=== PATIENT | female | born 1940 | race Caucasian/White ===

== ENCOUNTER 2019-11-22 18:13 | Observation (INO) | payer MEDICARE, BC ==
[2019-11-22 18:37] LABS: ABSOLUTE EOSINOPHILS # (AUTO) 0.1 10^3/uL (0.0-0.6); ABSOLUTE LYMPHOCYTES (AUTO) 0.7 10^3/uL (0.5-4.7); ABSOLUTE MONOCYTES (AUTO) 0.7 10^3/uL (0.1-1.4); ABSOLUTE NEUT (AUTO) 11.4 10^3/uL (1.7-8.2); BASOPHILS % (AUTO) 0.4 % (0-2); EOSINOPHILS % (AUTO) 1.1 % (0-6); HEMOGLOBIN 11.3 g/dL (12.0-15.5); LYMPHOCYTES % (AUTO) 5.5 % (13-45); MEAN CORPUSCULAR HEMOGLOBIN 31.9 pg (27.0-33.4); MEAN CORPUSCULAR HGB CONC 33.2 g/dL (32.0-36.0); MEAN CORPUSCULAR VOLUME 96 fl (80-97); MONOCYTES % (AUTO) 5.4 % (3-13); PLATELET COUNT 171 10^3/uL (150-450); RED BLOOD COUNT 3.54 10^6/uL (3.72-5.28); RED CELL DISTRIBUTION WIDTH 15.5 % (11.5-14.0); SEGMENTED NEUTROPHILS % (AUTO) 87.6 % (42-78); TOTAL CELLS COUNTED % (AUTO) 100 %
[2019-11-22 18:49] LABS: ALKALINE PHOSPHATASE 84 U/L (38-126); ANION GAP 7 (5-19); ASPARTATE AMINO TRANSFERASE 29 U/L (14-36); BILIRUBIN,DIRECT 0.1 mg/dL (0.0-0.4); BILIRUBIN,TOTAL 1.2 mg/dL (0.2-1.3); BLOOD UREA NITROGEN 15 mg/dL (7-20); CARBON DIOXIDE 31 mmol/L (22-30); CHLORIDE 101 mmol/L (98-107); GLUCOSE 191 mg/dL (75-110); POTASSIUM 4.1 mmol/L (3.6-5.0); TOTAL PROTEIN 7.1 g/dL (6.3-8.2)
--- NOTE | 2019-11-22 19:19 | RADIOLOGY REPORT (SQ) ---
EXAM DESCRIPTION: CHEST SINGLE VIEW COMPLETED DATE/TIME: 11/22/2019 5:36 pm REASON FOR STUDY: sob COMPARISON: None. EXAM PARAMETERS: NUMBER OF VIEWS: One view. TECHNIQUE: Single frontal radiographic view of the chest acquired. RADIATION DOSE: NA LIMITATIONS: None. FINDINGS: LUNGS AND PLEURA: Lungs are hyperinflated. There is ill-defined consolidation in the righ t mid to lower lung and small right pleural effusion, suspicious for pneumonia. No pneumothorax. MEDIASTINUM AND HILAR STRUCTURES: No masses. Contour normal. HEART AND VASCULAR STRUCTURES: Heart normal in size. Normal vasculature. BONES: No acute findings. HARDWARE: None in the chest. OTHER: No other significant finding. IMPRESSION: Right lower lobe consolidation and small effusion suspicious for pneumonia. TECHNICAL DOCUMENTATION: JOB ID: [id number] 2010 [employer]- All Rights Reserved Reading location - IP/workstation name: [email or web address]
--- NOTE | 2019-11-22 21:01 | ER Document Report ---
ED Respiratory Problem - General Chief Complaint: Breathing Difficulty Stated Complaint: TROUBLE BREATHING Time Seen by Provider: 11/22/19 20:47 Notes: Patient is a 79-year-old female that comes to the emergency department for chief complaint of difficulty breathing. She states that tonight she simply could not catch her breath, she states this started since yesterday, patient is mainly bed and wheelchair bound but even transferring she could barely breathe over the past day. EMS reports oxygen saturation was 90 on room air. Patient denies fever, she has occasional coughing, she denies chest pain, she denies nausea or vomiting. She denies any other complaints. Patient traveled down 2 days ago, driving about 5 hours. Patient also has a chronic brace and dressing on her left lower extremity after surgery from a nonhealing wound. Past medical history includes hypertension, CHF. In addition patient states that she was [place] 3 [place] 3 [place] ago out of state and she was discharged home on nebulizer therapy and oxygen. She states she does not have the oxygen at home now visiting here. TRAVEL OUTSIDE OF THE [place] IN LAST 30 DAYS: No - Related Data Allergies/Adverse Reactions: Sulfa (Sulfonamide Antibiotics) Allergy (Verified 11/22/19 23:15) Home Medications: pt unable to recall medications, states that the only one that she knows is lasix Past Medical History - General Information source: Patient, Relative - Social History Smoking Status: Never Smoker Frequency of alcohol use: None Drug Abuse: None Lives with: Family Family History: Reviewed & Not Pertinent Patient has suicidal ideation: No Patient has homicidal ideation: No - Past Medical History Cardiac Medical History: Reports: Hx Congestive Heart Failure, Hx Hypertension Past Surgical History: Reports: Hx Orthopedic Surgery - left leg - Immunizations Immunizations up to date: Yes Hx Diphtheria, Pertussis, Tetanus Vaccination: Yes Review of Systems - Review of Systems Constitutional: No symptoms reported EENT: No symptoms reported Cardiovascular: See HPI Respiratory: See HPI Gastrointestinal: No symptoms reported Genitourinary: No symptoms reported Female Genitourinary: No symptoms reported Musculoskeletal: No symptoms reported Skin: No symptoms reported Hematologic/Lymphatic: No symptoms reported Neurological/Psychological: No symptoms reported Physical Exam - Vital signs Vitals: Temp Pulse Ox 99.3 F 95 11/22/19 18:15 11/22/19 18:15 - Notes Notes: GENERAL: Alert, interacts well. No acute distress. HEAD: Normocephalic, atraumatic. EYES: Pupils equal, round, and reactive to light. Extraocular movements intact. ENT: Oral mucosa moist, tongue midline. Oropharynx unremarkable. Airway patent. NECK: Full range of motion. Supple. Trachea midline. LUNGS: Rales noted in both lower lung valente. No tachypnea or respiratory distress. Speaks in full sentences. Unremarkable otherwise. HEART: Regular rate and rhythm. No murmur ABDOMEN: Soft, non-tender. Non-distended. EXTREMITIES: Dressing and immobilization over the left foot and lower extremity. There appears to be 1+ pitting edema bilaterally. Unremarkable otherwise. BACK: no cervical, thoracic, lumbar midline tenderness. No saddle anesthesia, normal distal neurovascular exam. Moves all extremities in full range of motion. NEUROLOGICAL: Alert and oriented x3. Normal speech. Cranial nerves II through XII grossly intact. PSYCH: Normal affect, normal mood. SKIN: Warm, dry, normal turgor. No rashes or lesions noted. Course - Re-evaluation Re-evalutation: Patient states she feels much improved now that she is on oxygen. She does have rales in both lower lung valente. She does have chronic dressing and immobilization of the left lower extremity, she does spend most of her time immobilized in either wheelchair or bed, she just had a long distance travel, and she is mildly tachycardic. There is concern for pulmonary embolism. CBC shows leukocytosis with elevation of neutrophils, no bandemia. Chest x-ray shows what appears to be right lower lobe pneumonia. Because of patient's r ecent hospitalization this is considered hospital-acquired pneumonia. Cultures pending, vital signs do not show fever or hypotension. Venous blood gas unremarkable. Starting on vancomycin and cefepime. Chemistry nonspecific, troponin indeterminate, BNP is greater than 1700. No comparison. EKG nonischemic. CTA shows what appears to me to be pneumonia but radiologist is reading as vascular congestion most likely. No pulmonary embolism or dissection. I discussed with patient and significant other. They are concerned about going home because of her suspected pneumonia, pulmonary vascular congestion, and lack of home oxygen currently. I discussed with Dr. Sim, she recommends admission to the hospital for pneumonia treatment, diuresis, and oxygen. Discussed with Dr. Bonds, patient accepted to medical floor observation. - Vital Signs Vital signs: Temp Pulse Resp BP Pulse Ox 98.3 F 105 H 18 146/69 H 100 11/23/19 04:20 11/23/19 04:20 11/23/19 04:20 11/23/19 04:20 11/23/19 04:20 - Laboratory Result Diagrams: 11/22/19 18:20 11/22/19 18:20 Laboratory results interpreted by me: 11/22/19 11/22/19 11/22/19 18:20 18:20 18:20 WBC 13.0 H RBC 3.54 L Hgb 11.3 L Hct 34.0 L RDW 15.5 H Lymph % (Auto) 5.5 L Absolute Neuts (auto) 11.4 H Seg Neutrophils % 87.6 H Carbon Dioxide 31 H Glucose 191 H NT-Pro-B Natriuret Pep 1760 H Urine Protein Urine Glucose (UA) Urine Blood 11/22/19 20:25 WBC RBC Hgb Hct RDW Lymph % (Auto) Absolute Neuts (auto) Seg Neutrophils % Carbon Dioxide Glucose NT-Pro-B Natriuret Pep Urine Protein 30 H Urine Glucose (UA) 50 H Urine Blood LARGE H Discharge - Discharge Clinical Impression: Hypoxia, Shortness of breath Pneumonia Qualifiers: Pneumonia type: due to unspecified organism Laterality: unspecified laterality Lung location: lower lobe of lung Qualified Code(s): J18.9 - Pneumonia, unspecified organism CHF exacerbation Qualifiers: Heart failure type: unspecified Qualified Code(s): I50.9 - Heart failure, unspecified Condition: Stable Disposition: ADMITTED OBSERVATION Admitting Provider: Vamshi (Hospitalist) Unit Admitted: Medical Floor
[2019-11-22 21:45] LABS: TROPONIN I 0.024 ng/mL
[2019-11-22] MEDS ORDERED: MORPHINE SULFATE 10 MG/ML INJ IV ONE (21:47)
[2019-11-22 21:51] LABS: APPEARANCE,URINE CLEAR; BILIRUBIN,URINE NEGATIVE (NEGATIVE); COLOR,URINE YELLOW; GLUCOSE, URINE 50 mg/dL (NEGATIVE); KETONES,URINE NEGATIVE (NEGATIVE); LEUKOCYTE ESTERASE,URINE NEGATIVE (NEGATIVE); NITRITE,URINE NEGATIVE (NEGATIVE); PROTEIN,URINE 30 mg/dL (NEGATIVE); URINE SPECIFIC GRAVITY 1.016; UROBILINOGEN,URINE NEGATIVE mg/dL (<2.0)
[2019-11-22 21:59] LABS: VENOUS BLOOD BASE EXCESS -2.2 mmol/L; VENOUS BLOOD HCO3 22.8 mmol/L (20-32); VENOUS BLOOD PCO2 39.8 mmHg (35-63); VENOUS BLOOD PH 7.38 (7.30-7.42)
--- NOTE | 2019-11-22 22:03 | EKG REPORT ---
SEVERITY:- ABNORMAL ECG - SINUS TACHYCARDIA NONSPECIFIC T ABNORMALITIES, INFERIOR LEADS : Confirmed by: Guerda Mast 22-Nov-2019 22:02:34
[2019-11-22] MEDS ORDERED: VANCOMYCIN HCL INJ 1000 MG VIAL IV ONE (23:00)
[2019-11-22] MEDS ORDERED: CEFEPIME 2 GM/D5W RTU 2 GM/50 ML RTUPB IV ONE (23:00)
--- NOTE | 2019-11-22 23:14 | RADIOLOGY REPORT (SQ) ---
EXAM EXAM DESCRIPTION: CT pulmonary angiogram of the chest. CLINICAL HISTORY: 79 years Female; difficulty breathing, long distance travel TECHNIQUE: CT angiogram of the chest using intravenous contrast.. MIP reconstructions were performed. All CT scans at this facility use dose modulation, iterative reconstruction, and/or weight based dosing when appropriate to reduce radiation dose to as low as reasonably achievable. COMPARISON: None. FINDINGS: Chest: Vascular: Contrast bolus is borderline for diagnostic utility however, there is no large or central PE identified. Scattered vascular calcifications are noted in the thoracic aorta. No aneurysm or dissection. Lungs: Groundglass opacification is present throughout the lung parenchyma and it is layering in the dependent fashion. There is more focal volume loss noted in the lower lobes right greater than left. Findings are suggestive of pulmonary edema. Small bilateral pleural effusions are noted. No pulmonary nodules or masses. Mediastinum: Heart size is enlarged and there is coronary artery calcifications. Mitral annular calcifications are noted. No significant mediastinal or hilar lymphadenopathy. There is mild prominence the perihilar lymphatic tissue suggesting increased intravascular volume with congestion. Bones and soft tissues: Bone mineralization is diminished and there is complete collapse of the T6 vertebral body. Mild retropulsion of the posterior aspect of the vertebral body. There is endplate spondylosis in the lower thoracic spine. Upper Abdomen: The spleen is enlarged and measures 13.7 cm. The liver is also most likely enlarged. There appear to be cysts in the left kidney. IMPRESSION: 1. No pulmonary embolism. 2. Cardiomegaly with changes of pulmonary edema and small pleural effusions. 3. Probable hepatosplenomegaly.
[2019-11-23] MEDS ORDERED: FUROSEMIDE INJ/PF 40 MG/4 ML SDV IV ONE (00:20)
[2019-11-23] MEDS ORDERED: MAGNESIUM HYDROXIDE SUSP 30 ML UDCUP PO PRN (00:54)
[2019-11-23] MEDS ORDERED: PROMETHAZINE HCL INJ 25 MG/1 ML VIAL IV PRN (00:54)
[2019-11-23] MEDS ORDERED: LORAZEPAM INJ 2 MG/1 ML VIAL IV PRN (00:54)
[2019-11-23] MEDS ORDERED: MAG HYDROX/AL HYDROX/SIMETH SUSP 30 ML UDCUP PO PRN (00:54)
[2019-11-23] MEDS ORDERED: MORPHINE SULFATE 10 MG/ML INJ IV PRN (00:54)
[2019-11-23] MEDS ORDERED: ACETAMINOPHEN 325 MG TABLET PO PRN (00:54)
[2019-11-23] MEDS ORDERED: GLUCAGON,HUMAN RECOMB 1 MG INJ IM PRN (00:57)
[2019-11-23] MEDS ORDERED: DEXTROSE 50%-WATER 25 GM/50 ML DISP.SYRIN IV PRN ×2 (00:57)
[2019-11-23] MEDS ORDERED: DEXTROSE 40% GEL 15 GM TUBE PO PRN ×2 (00:57)
[2019-11-23] MEDS ORDERED: INSULIN REG, HUMAN 100 UNIT/ML 3 ML VIAL (PYX) SUBCUT PRN (00:57)
[2019-11-23] MEDS: NITROGLYCERIN 2% OINTMENT 1 GM PACKET TP SCH ×3 (01:17→13:50)
[2019-11-23] MEDS ORDERED: INFLUENZA QUAD (6MOS+) 2019-20 VAC 0.5 ML SYR IM ONE (02:33)
--- NOTE | 2019-11-23 03:58 | PDOC H&P ---
History of Present Illness Admission Date/PCP: 11/23/19 00:36 [id number] PCP Patient complains of: Dyspnea History of Present Illness: JULIANNA PALMER is a 79 year old female who presented emergency room with a 2-day history of dyspnea. She admits progressively worsening dyspnea which began 2 days ago becoming severe on the evening of 11/22/2019. Her dyspnea is worsened by exertion and has been accompanied by orthopnea. Her dyspnea is associated with leaving home without her supplemental oxygen which she uses at 2 L/min per nasal cannula on a continuous basis when sleeping and on an as-needed basis during the day. She denies other associated or accompanying signs and symptoms. She admits prior similar symptoms. She has not identified any additional aggravating or ameliorating factors for her dyspnea. In the emergency room she was found to have acute hypoxic respiratory failure with an elevated BNP and a CT of the chest demonstrating interstitial edema consistent with congestive heart failure. She was subsequently admitted to observation status for further evaluation and treatment. Past Medical History Cardiac Medical History: Reports: Hypertension, Peripheral Vascular Disease - Venous stasis, Other - Enlarged heart Denies: Atrial Fibrillation, Congestive Heart Failure, Coronary Artery Disease, DVT, Myocardial Infarction, Hyperlipidema, Pulmonary Embolism Pulmonary Medical History: Denies: Asthma, Chronic Obstructive Pulmonary Disease (COPD), Respiratory Failure EENT Medical History: Denies: Cataracts, Ears - Hearing aids Neurological Medical History: Denies: Hemorrhagic CVA, Ischemic CVA, Seizures Endocrine Medical History: Reports: Hypothyroidism - Following Vannesa's thyroiditis, Obesity Denies: Diabetes Mellitus Type 1, Diabetes Mellitus Type 2, Hyperthyroidism Renal/ Medical History: Denies: Chronic Kidney Disease, Nephrolithiasis Malignancy Medical History: Reports: None GI Medical History: Denies: Cirrhosis, Crohn's Disease, Gastroesophageal Reflux Disease, Hepatitis, Peptic Ulcer Disease, Ulcerative Colitis Musculoskeltal Medical History: Denies: Arthritis, Fibromyalgia Skin Medical History: Reports: Other - Chronic (nonhealing) wound left lower extremity Denies: Eczema, Psoriasis Psychiatric Medical History: Denies: Alcohol Dependency, Substance Abuse, Tobacco Dependency Traumatic Medical History: Reports: None Hematology: Denies: Anemia, Bleeding Tendencies Infectious Medical History: Reports: None Past Surgical History Past Surgical History: Reports: Mastectomy - Lumpectomy, Orthopedic Surgery - Bilateral leg surgeries for fracture repairs, partial thyroidectomy,, Other - Wound revisions for chronic nonhealing leg ulcer Social History Information Source: Patient Lives with: Family Smoking Status: Former Smoker Electronic Cigarette use?: No Frequency of Alcohol Use: None Hx Recreational Drug Use: No Drugs: None Hx Prescription Drug Abuse: No - Advance Directive Resuscitation Status: Full Code Surrogate healthcare decision maker:: BENJAMÍN Hortencia Family History Family History: CAD, CVA, Hypertension, Malignancy. denies: DM Parental Family History Reviewed: Yes Children Family History Reviewed: No Sibling(s) Family History Reviewed.: Yes Medication/Allergy Allergies/Adverse Reactions: Sulfa (Sulfonamide Antibiotics) Allergy (Verified 11/22/19 23:15) Review of Systems Constitutional: ABSENT: chills, fever(s) Eyes: ABSENT: visual disturbances, other - Eye pain Ears: ABSENT: hearing changes, other - Ear pain Nose, Mouth, and Throat: ABSENT: mouth pain, sore throat Cardiovascular: PRESENT: dyspnea on exertion, orthropnea. ABSENT: chest pain, palpitations Respiratory: PRESENT: dyspnea. ABSENT: cough Gastrointestinal: ABSENT: abdominal pain, constipation, diarrhea, nausea, vomiting Genitourinary: ABSENT: dysuria, hematuria Musculoskeletal: PRESENT: other - Nonhealing wound left lower extremity, chronic foot pain. ABSENT: joint swelling Integumentary: PRESENT: wounds - Nonhealing wound left lower extremity. ABSENT: pruritus, rash Neurological: ABSENT: confusion, convulsions, focal weakness, memory loss, syncope Psychiatric: ABSENT: anxiety, depression Endocrine: ABSENT: cold intolerance, heat intolerance, polydipsia, polyphagia, polyuria Hematologic/Lymphatic: ABSENT: easy bleeding, easy bruising Allergic/Immunologic: ABSENT: seasonal rhinorrhea Physical Exam Vital Signs: Temp Pulse Resp BP Pulse Ox 99.3 F 103 H 23 H 132/77 H 98 11/22/19 18:15 11/22/19 18:28 11/22/19 18:28 11/22/19 18:28 11/22/19 18:28 Intake & Output 11/21/19 11/22/19 11/23/19 23:59 23:59 23:59 Intake Total 50 Balance 50 Weight 135.7 kg General appearance: PRESENT: no acute distress, cooperative, other - On supplemental O2 at 2 L/min via nasal cannula at the time of my exam Head exam: PRESENT: atraumatic, normocephalic Eye exam: PRESENT: conjunctiva pink. ABSENT: conjunctival injection, scleral icterus Ear exam: PRESENT: normal external ear exam. ABSENT: bleeding, drainage Mouth exam: PRESENT: dry mucosa, neck supple Neck exam: PRESENT: JVD - Bilateral at 30 degrees of elevation. ABSENT: thyromegaly, tracheal deviation Respiratory exam: PRESENT: rales - Bibasilar rales noted, symmetrical Cardiovascular exam: PRESENT: gallop - S4 gallop, RRR. ABSENT: clicks, rubs Pulses: PRESENT: normal carotid pulses, normal radial pulses Vascular exam: PRESENT: normal capillary refill. ABSENT: pallor GI/Abdominal exam: PRESENT: normal bowel sounds, soft. ABSENT: tenderness Rectal exam: PRESENT: deferred Extremities exam: PRESENT: other - Left lower leg is in a boot dressing at the time of my exam. ABSENT: joint swelling Musculoskeletal exam: ABSENT: ambulatory, deformity, dislocation Neurological exam: PRESENT: alert, oriented to person, oriented to place, oriented to time, oriented to situation, CN II-XII grossly intact. ABSENT: motor sensory deficit Psychiatric exam: PRESENT: appropriate affect, normal mood Skin exam: PRESENT: dry, intact, warm. ABSENT: jaundice, rash, urticaria Results Laboratory Results: 11/22/19 18:20 11/22/19 18:20 11/22/19 11/22/19 11/22/19 18:20 18:20 20:25 WBC 13.0 H RBC 3.54 L Hgb 11.3 L Hct 34.0 L MCV 96 MCH 31.9 MCHC 33.2 RDW 15.5 H Plt Count 171 Seg Neutrophils % 87.6 H VBG pH VBG pCO2 VBG HCO3 VBG Base Excess Sodium 138.8 Potassium 4.1 Chloride 101 Carbon Dioxide 31 H Anion Gap 7 BUN 15 Creatinine 0.71 Est GFR ( Amer) > 60 Glucose 191 H Calcium 9.0 Total Bilirubin 1.2 AST 29 Alkaline Phosphatase 84 Total Protein 7.1 Albumin 4.0 Urine Color YELLOW Urine Appearance CLEAR Urine pH 5.0 Ur Specific [place] 1.016 Urine Protein 30 H Urine Glucose (UA) 50 H Urine Ketones NEGATIVE Urine Blood LARGE H Urine Nitrite NEGATIVE Ur Leukocyte Esterase NEGATIVE Urine WBC (Auto) 3 Urine RBC (Auto) 36 11/22/19 21:37 WBC RBC Hgb Hct MCV MCH MCHC RDW Plt Count Seg Neutrophils % VBG pH 7.38 VBG pCO2 39.8 VBG HCO3 22.8 VBG Base Excess -2.2 Sodium Potassium Chloride Carbon Dioxide Anion Gap BUN Creatinine Est GFR ( Amer) Glucose Calcium Total Bilirubin AST Alkaline Phosphatase Total Protein Albumin Urine Color Urine Appearance Urine pH Ur Specific [place] Urine Protein Urine Glucose (UA) Urine Ketones Urine Blood Urine Nitrite Ur Leukocyte Esterase Urine WBC (Auto) Urine RBC (Auto) 11/22/19 18:20 Troponin I 0.024 NT-Pro-B Natriuret Pep 1760 H Impressions: Chest X-Ray 11/22/19 18:18 IMPRESSION: Right lower lobe consolidation and small effusion suspicious for pneumonia. Chest/Abdomen CTA 11/22/19 20:58 IMPRESSION: 1. No pulmonary embolism. 2. Cardiomegaly with changes of pulmonary edema and small pleural effusions. 3. Probable hepatosplenomegaly. Assessment and Plan - Diagnosis (1) Acute pulmonary edema with congestive heart failure Is this a current diagnosis for this admission?: Yes (2) Acute and chronic respiratory failure with hypoxia Is this a current diagnosis for this admission?: Yes (3) Acute on chronic congestive heart failure Qualifiers: Heart failure type: unspecified Qualified Code(s): I50.9 - Heart failure, unspecified Is this a current diagnosis for this admission?: Yes (4) Hypertension Qualifiers: Hypertension type: essential hypertension Qualified Code(s): I10 - Essential (primary) hypertension Is this a current diagnosis for this admission?: Yes (5) Nonhealing nonsurgical wound Is this a current diagnosis for this admission?: Yes (6) Chronic pain after traumatic injury Is this a current diagnosis for this admission?: Yes - Plan Summary Summary: Patient is admitted observation status on the medical floor where she received routine supportive and symptomatic cares. She will be treated with supplemental oxygen as required to maintain adequate oxygen saturation. She will receive morphine sulfate 2 mg IV every hour as needed severe dyspnea. She will be treated with nitroglycerin 2% topical 1 g every 6 hours. A social psychologist consultation will be obtained to arrange for the patient to get supplemental oxygen that would permit her to be discharged. The patient's current congestive heart failure therapy will be continued with appropriate adjustments once her medications list has been verified and reconciled. - Time Time Spent with patient: 25-34 minutes Medications reviewed and adjusted accordingly: Yes Anticipated discharge: Home Within: within 36 hours - Inpatient Certification Based on my medical assessment, after consideration of the patient's comorbidities, presenting symptoms, or acuity I expect that the services needed warrant INPATIENT care.: No I certify that my determination is in accordance with my understanding of Medicare's requirements for reasonable and necessary INPATIENT services [42 CFR 412.3e].: No
[2019-11-23] MEDS ORDERED: OXYCODONE HCL IR 5 MG TABLET PO PRN (04:05)
[2019-11-23] MEDS: HEPARIN SOD (PORCINE) 5,000 UNIT/ML 1 ML VIAL SUBCUT SCH ×2 (05:25→13:50)
[2019-11-23] MEDS ORDERED: OXYCODONE HCL SR 10 MG TABLET PO SCH (10:00)
[2019-11-23] MEDS ORDERED: LISINOPRIL 10 MG TABLET PO SCH (10:00)
[2019-11-23] MEDS ORDERED: SPIRONOLACTONE 25 MG TABLET PO SCH (10:00)
[2019-11-23] MEDS ORDERED: DOCUSATE SODIUM 100 MG CAPSULE PO SCH (10:00)
[2019-11-23] MEDS ORDERED: TORSEMIDE 20 MG TABLET PO SCH (10:00)
[2019-11-23] MEDS ORDERED: CARVEDILOL 6.25 MG TABLET PO SCH (10:00)
--- NOTE | 2019-11-23 12:32 | PDOC PROGRESS REPORT ---
Subjective Progress Note for:: 11/23/19 Reason For Visit: ACUTE AND CHRONIC RESPIRATTORY FAILURE WITH Physical Exam Vital Signs: Temp Pulse Resp BP Pulse Ox 98.3 F 108 H 16 115/61 92 11/23/19 07:22 11/23/19 07:22 11/23/19 07:22 11/23/19 07:22 11/23/19 07:22 Intake & Output 11/22/19 11/23/19 11/24/19 06:59 06:59 06:59 Intake Total 50 Output Total 900 Balance -850 Weight 133.1 kg Results Laboratory Results: 11/22/19 18:20 11/22/19 18:20 11/22/19 11/22/19 11/22/19 18:20 18:20 20:25 WBC 13.0 H RBC 3.54 L Hgb 11.3 L Hct 34.0 L MCV 96 MCH 31.9 MCHC 33.2 RDW 15.5 H Plt Count 171 Seg Neutrophils % 87.6 H VBG pH VBG pCO2 VBG HCO3 VBG Base Excess Sodium 138.8 Potassium 4.1 Chloride 101 Carbon Dioxide 31 H Anion Gap 7 BUN 15 Creatinine 0.71 Est GFR ( Amer) > 60 Glucose 191 H Calcium 9.0 Total Bilirubin 1.2 AST 29 Alkaline Phosphatase 84 Total Protein 7.1 Albumin 4.0 Urine Color YELLOW Urine Appearance CLEAR Urine pH 5.0 Ur Specific [place] 1.016 Urine Protein 30 H Urine Glucose (UA) 50 H Urine Ketones NEGATIVE Urine Blood LARGE H Urine Nitrite NEGATIVE Ur Leukocyte Esterase NEGATIVE Urine WBC (Auto) 3 Urine RBC (Auto) 36 11/22/19 21:37 WBC RBC Hgb Hct MCV MCH MCHC RDW Plt Count Seg Neutrophils % VBG pH 7.38 VBG pCO2 39.8 VBG HCO3 22.8 VBG Base Excess -2.2 Sodium Potassium Chloride Carbon Dioxide Anion Gap BUN Creatinine Est GFR ( Amer) Glucose Calcium Total Bilirubin AST Alkaline Phosphatase Total Protein Albumin Urine Color Urine Appearance Urine pH Ur Specific [place] Urine Protein Urine Glucose (UA) Urine Ketones Urine Blood Urine Nitrite Ur Leukocyte Esterase Urine WBC (Auto) Urine RBC (Auto) 11/22/19 21:37 Blood Blood Culture (PCR) - Final Streptococcus Species 11/22/19 18:20 Troponin I 0.024 NT-Pro-B Natriuret Pep 1760 H Impressions: Chest X-Ray 11/22/19 18:18 IMPRESSION: Right lower lobe consolidation and small effusion suspicious for pneumonia. Chest/Abdomen CTA 11/22/19 20:58 IMPRESSION: 1. No pulmonary embolism. 2. Cardiomegaly with changes of pulmonary edema and small pleural effusions. 3. Probable hepatosplenomegaly. Assessment and Plan - Plan Summary Summary: Patient is admitted observation status on the medical floor where she received routine supportive and symptomatic cares. She will be treated with supplemental oxygen as required to maintain adequate oxygen saturation. She will receive morphine sulfate 2 mg IV every hour as needed severe dyspnea. She will be treated with nitroglycerin 2% topical 1 g every 6 hours. A social service agency director cons ultation will be obtained to arrange for the patient to get supplemental oxygen that would permit her to be discharged. The patient's current congestive heart failure therapy will be continued with appropriate adjustments once her medications list has been verified and reconciled.
[2019-11-23] MEDS ORDERED: LEVOTHYROXINE SODIUM 0.1 MG TABLET PO SCH (13:00)
[2019-11-23] MEDS ORDERED: TIZANIDINE HCL 4 MG TABLET PO PRN (13:22)
--- NOTE | 2019-11-23 13:38 | PDOC DISCHARGE SUMMARY ---
Impression - Admit/DC Date/PCP Admission Date/Primary Care Provider: 11/23/19 00:36 Discharge Date: 11/23/19 - Discharge Diagnosis (1) Acute pulmonary edema with congestive heart failure Is this a current diagnosis for this admission?: Yes (2) Acute on chronic congestive heart failure Is this a current diagnosis for this admission?: Yes (3) Acute and chronic respiratory failure with hypoxia Is this a current diagnosis for this admission?: Yes (4) Chronic pain after traumatic injury Is this a current diagnosis for this admission?: Yes (5) Nonhealing nonsurgical wound Is this a current diagnosis for this admission?: Yes (6) Morbid obesity with BMI of 45.0-49.9, adult Is this a current diagnosis for this admission?: Yes - Assessment Summary: Patient is admitted observation status on the medical floor where she received routine supportive and symptomatic cares. She will be treated with supplemental oxygen as required to maintain adequate oxygen saturation. She will receive morphine sulfate 2 mg IV every hour as needed severe dyspnea. She will be treated with nitroglycerin 2% topical 1 g every 6 hours. A psychiatric social worker supervisor consultation will be obtained to arrange for the patient to get supplemental oxygen that would permit her to be discharged. The patient's current congestive heart failure therapy will be continued with appropriate adjustments once her medications list has been verified and reconciled. - Additional Information Resuscitation Status: Full Code Discharge Diet: Cardiac Discharge Activity: Activity As Tolerated, Balance Activity w/Rest Referrals: Follow-up, [place] [Other] (Patient is a resident of [place]. And will make follow-up when he returns home.) Prescriptions: Spironolactone [Aldactone 25 mg Tablet] 25 mg PO DAILY 15 Days #15 tablet Furosemide [Lasix 20 mg Tablet] 20 mg PO QAM 15 Days #15 tablet Doxycycline Hyclate [Vibramycin] 100 mg PO BID 7 Days #14 cap Home Medications: Atorvastatin Calcium [Lipitor 40 mg Tablet] 40 mg PO QHS 11/23/19 Doxycycline Hyclate [Vibramycin] 100 mg PO BID 7 Days #14 cap 11/23/19 Duloxetine HCl [Cymbalta] 60 mg PO DAILY 11/23/19 Famotidine 40 mg PO DAILY 11/23/19 Furosemide [Lasix 20 mg Tablet] 20 mg PO QAM 15 Days #15 tablet 11/23/19 Levothyroxine Sodium 200 mcg PO DAILY 11/23/19 Lisinopril [Prinivil] 20 mg PO DAILY 11/23/19 Metoprolol Tartrate [Lopressor 25 mg Tablet] 25 mg PO BID 11/23/19 Oxycodone HCl [Oxycontin] 20 mg PO Q12 11/23/19 Oxycodone HCl/Acetaminophen [Percocet 10-325 mg Tablet] 1 each PO BID 11/23/19 Pregabalin [Lyrica 100 mg Capsule] 300 mg PO Q12 11/23/19 Spironolactone [Aldactone 25 mg Tablet] 25 mg PO DAILY 15 Days #15 tablet 11/23/19 Tizanidine HCl 4 mg PO TIDP PRN 11/23/19 History of Present Illiness History of Present Illness: JULIANNA PALMER is a 79 year old female who presented emergency room with a 2-day history of dyspnea. She admits progressively worsening dyspnea which began 2 days ago becoming severe on the evening of 11/22/2019. Her dyspnea is worsened by exertion and has been accompanied by orthopnea. Her dyspnea is associated with leaving home without her supplemental oxygen which she uses at 2 L/min per nasal cannula on a continuous basis when sleeping and on an as-needed basis during the day. She denies other associated or accompanying signs and symptoms. She admits prior similar symptoms. She has not identified any additional aggravating or ameliorating factors for her dyspnea. In the emergency room she was found to have acute hypoxic respiratory failure with an elevated BNP and a CT of the chest demonstrating interstitial edema consistent with congestive heart failure. She was subsequently admitted to observation status for further evaluation and treatment. Hospital Course Hospital Course: The patient had a fairly unremarkable hospital course. With aggressive therapy for congestive heart failure/pulmonary edema she did very well. In fact by this morning she had no rales and we were able to taper her to room air. She is on oxygen at night at home. She states that on occasion she will use it during the day. Unfortunately she did not bring her oxygen with her. They live in [place] and are anxious to get home. Her room air saturation was above 90%, and she will be sitting in a car for the entire ride, so I feel it is safe to discharge home. Physical Exam Vital Signs: Temp Pulse Resp BP Pulse Ox 98.3 F 108 H 16 115/61 92 11/23/19 07:22 11/23/19 07:22 11/23/19 07:22 11/23/19 07:22 11/23/19 07:22 Intake & Output 11/22/19 11/23/19 11/24/19 06:59 06:59 06:59 Intake Total 50 Output Total 900 Balance -850 Weight 133.1 kg General appearance: PRESENT: no acute distress, cooperative, morbidly obese, well-developed Head exam: PRESENT: atraumatic, normocephalic Respiratory exam: PRESENT: clear to auscultation tish, symmetrical, unlabored. ABSENT: prolonged expiratory phas, rales, rhonchi, tachypnea, wheezes Cardiovascular exam: PRESENT: RRR, +S1, +S2, systolic murmur - 2/6 GI/Abdominal exam: PRESENT: normal bowel sounds, soft, other - Protuberant abdomen. ABSENT: tenderness Extremities exam: PRESENT: other - Walking boot on the left ankle Neurological exam: PRESENT: alert, awake, oriented to person, oriented to place, oriented to time, oriented to situation Psychiatric exam: PRESENT: appropriate affect. ABSENT: agitated, anxious Results Laboratory Results: WBC 13.0 10^3/uL (4.0-10.5) H 11/22/19 18:20 RBC 3.54 10^6/uL (3.72-5.28) L 11/22/19 18:20 Hgb 11.3 g/dL (12.0-15.5) L 11/22/19 18:20 Hct 34.0 % (36.0-47.0) L 11/22/19 18:20 MCV 96 fl (80-97) 11/22/19 18:20 MCH 31.9 pg (27.0-33.4) 11/22/19 18:20 MCHC 33.2 g/dL (32.0-36.0) 11/22/19 18:20 RDW 15.5 % (11.5-14.0) H 11/22/19 18:20 Plt Count 171 10^3/uL (150-450) 11/22/19 18:20 Lymph % (Auto) 5.5 % (13-45) L 11/22/19 18:20 [place] % (Auto) 5.4 % (3-13) 11/22/19 18:20 Eos % (Auto) 1.1 % (0-6) 11/22/19 18:20 Baso % (Auto) 0.4 % (0-2) 11/22/19 18:20 Absolute Neuts (auto) 11.4 10^3/uL (1.7-8.2) H 11/22/19 18:20 Absolute Lymphs (auto) 0.7 10^3/uL (0.5-4.7) 11/22/19 18:20 Absolute Monos (auto) 0.7 10^3/uL (0.1-1.4) 11/22/19 18:20 Absolute Eos (auto) 0.1 10^3/uL (0.0-0.6) 11/22/19 18:20 Absolute Basos (auto) 0.0 10^3/uL (0.0-0.2) 11/22/19 18:20 Seg Neutrophils % 87.6 % (42-78) H 11/22/19 18:20 VBG pH 7.38 (7.30-7.42) 11/22/19 21:37 VBG pCO2 39.8 mmHg (35-63) 11/22/19 21:37 VBG HCO3 22.8 mmol/L (20-32) 11/22/19 21:37 VBG Base Excess -2.2 mmol/L 11/22/19 21:37 Sodium 138.8 mmol/L (137-145) 11/22/19 18:20 Potassium 4.1 mmol/L (3.6-5.0) 11/22/19 18:20 Chloride 101 mmol/L (98-107) 11/22/19 18:20 Carbon Dioxide 31 mmol/L (22-30) H 11/22/19 18:20 Anion Gap 7 (5-19) 11/22/19 18:20 BUN 15 mg/dL (7-20) 11/22/19 18:20 Creatinine 0.71 mg/dL (0.52-1.25) 11/22/19 18:20 Est GFR ( Amer) > 60 (>60) 11/22/19 18:20 Est GFR (MDRD) Non-Af > 60 (>60) 11/22/19 18:20 Glucose 191 mg/dL (75-110) H 11/22/19 18:20 POC Glucose 166 mg/dL (70-110) H 11/23/19 11:57 Calcium 9.0 mg/dL (8.4-10.2) 11/22/19 18:20 Total Bilirubin 1.2 mg/dL (0.2-1.3) 11/22/19 18:20 Direct Bilirubin 0.1 mg/dL (0.0-0.4) 11/22/19 18:20 Neonat Total Bilirubin Not Reportable 11/22/19 18:20 Neonat Direct Bilirubin Not Reportable 11/22/19 18:20 Neonat Indirect Bili Not Reportable 11/22/19 18:20 AST 29 U/L (14-36) 11/22/19: ALT 18 U/L (<35) 11/22/19 18:20 Alkaline Phosphatase 84 U/L (38-126) 11/22/19 18:20 Troponin I 0.024 ng/mL 11/22/19 18: NT-Pro-B Natriuret Pep 1760 pg/mL (<450) H 11/22/19 18:20 Total Protein 7.1 g/dL (6.3-8.2) 11/22/19 18: Albumin 4.0 g/dL (3.5-5.0) 11/22/19 18: Urine Color YELLOW 11/22/19 20:25 Urine Appearance CLEAR 11/22/19 20: Urine pH 5.0 (5.0-9.0) 11/22/19 20:25 Ur Specific [place] 1.016 11/22/19 20:25 Urine Protein 30 mg/dL (NEGATIVE) H 11/22/19 20:25 Urine Glucose (UA) 50 mg/dL (NEGATIVE) H 11/22/19 20:25 Urine Ketones NEGATIVE mg/dL (NEGATIVE) 11/22/19 20: Urine Blood LARGE (NEGATIVE) H 11/22/19 20: Urine Nitrite NEGATIVE (NEGATIVE) 11/22/19 20:25 Urine Bilirubin NEGATIVE (NEGATIVE) 11/22/19 20:25 Urine Urobilinogen NEGATIVE mg/dL (<2.0) 11/22/19 20:25 Ur Leukocyte Esterase NEGATIVE (NEGATIVE) 11/22/19 20:25 Urine WBC (Auto) 3 /HPF 11/22/19 20:25 Urine RBC (Auto) 36 /HPF 11/22/19 20:25 Squamous Epi Cells Auto 1 /HPF 11/22/19 20:25 Urine Mucus (Auto) RARE /LPF 11/22/19 20:25 Urine Ascorbic Acid NEGATIVE (NEGATIVE) 11/22/19 20:25 11/22/19 18:20 Troponin I 0.024 NT-Pro-B Natriuret Pep 1760 H Impressions: Chest X-Ray 11/22/19 18:18 IMPRESSION: Right lower lobe consolidation and small effusion suspicious for pneumonia. Chest/Abdomen CTA 11/22/19 20:58 IMPRESSION: 1. No pulmonary embolism. 2. Cardiomegaly with changes of pulmonary edema and small pleural effusions. 3. Probable hepatosplenomegaly. Plan Health Concerns: The patient did have elevated glucose levels. She needs to visit with her primary care provider when she gets home. She also needs to see her malt loader. She will likely need diuretic therapy on a daily basis. Plan of Treatment: I did add furosemide, lisinopril and spironolactone to her regimen. She was not on any diuretic. She responded to torsemide in the hospital and that she will be on 3 new medications I adjusted doses so that she would not become hypotensive. Her primary care provider or malt loader will likely make adjustments. Goals: Patient is from [place]. Will make appointment when returned home. Time Spent: Greater than 30 Minutes Stroke Is this a Stroke Patient?: No Acute Heart Failure - Is this a Heart Failure Patient?: Yes Documentation of LVEF assessment?: Planned for after discharge LVEF < 40%?: No- if no continue to question #3 3. Anticoagulant therapy for permanect/persistent/paraoxysmal Afib or Aflutter: N/A Follow-up Appointment scheduled within 7 days?: Yes
[2019-11-23 13:57] VITALS: BP 132/77
[2019-11-23] MEDS ORDERED: (PENDING PHARMACY ID) (Oxycodone Hcl/Acetaminophen [Percocet 10-325 Mg Tablet] 1 EACH) PO SCH (18:00)
[2019-11-23] MEDS ORDERED: METOPROLOL TARTRATE 25 MG TABLET PO SCH (22:00)
[2019-11-23] MEDS ORDERED: PREGABALIN 100 MG CAPSULE PO SCH (22:00)
[2019-11-23] MEDS ORDERED: ATORVASTATIN CALCIUM 40 MG TABLET PO SCH (22:00)
[2019-11-24] MEDS ORDERED: DULOXETINE HCL 30 MG CAPSULE.DR PO SCH (10:00)
[2019-11-24] MEDS ORDERED: LEVOTHYROXINE SODIUM 0.1 MG TABLET PO SCH (10:00)
[2019-11-24] MEDS ORDERED: (PENDING PHARMACY ID) (Lisinopril [Prinivil] 20 MG) PO SCH (10:00)
[2019-11-24] MEDS ORDERED: FAMOTIDINE 20 MG TABLET PO SCH (10:00)
[2019-11-24] MEDS ORDERED: (PENDING PHARMACY ID) (Levothyroxine Sodium [Levothyroxine Sodium] 200 MCG) PO SCH (10:00)
== END 2019-11-23 14:49 | disposition home or self-care (01) ==
LOC: ER 18:13 → EH 11-23 00:36 → 3N 11-23 01:49
PROVIDERS: ADMIT Emergency Medicine; ATTEND Emergency Medicine
DX: J96.21 Acute and chronic respiratory failure with hypoxia (principal); I11.0 Hypertensive heart disease with heart failure; I50.9 Heart failure, unspecified; G89.21 Chronic pain due to trauma; E66.01 Morbid (severe) obesity due to excess calories; Z68.42 Body mass index [BMI] 45.0-49.9, adult; D72.829 Elevated white blood cell count, unspecified; R00.0 Tachycardia, unspecified; S81.802S Unspecified open wound, left lower leg, sequela; X58.XXXS Exposure to other specified factors, sequela; R73.9 Hyperglycemia, unspecified; E06.3 Autoimmune thyroiditis; E03.9 Hypothyroidism, unspecified; G89.29 Other chronic pain; M79.672 Pain in left foot; I87.8 Other specified disorders of veins; Z74.01 Bed confinement status; Z99.3 Dependence on wheelchair; Z23 Encounter for immunization; Z79.899 Other long term (current) drug therapy; Z99.81 Dependence on supplemental oxygen; Z90.10 Acquired absence of unspecified breast and nipple; Z87.891 Personal history of nicotine dependence; Z82.49 Family history of ischemic heart disease and other diseases of the circulatory system
CPT/HCPCS: 93005; 99285; 96375; 96365; 96366; 96368; 36415; 87040; 82962; 85025; 87077; 80053; 81001; 84484; 82803; 87150 ×26; 83880; 71045; 71275; 90686; 93010; J1940; J2270; J3370; J0692; 87186; G0378